=== PATIENT | male | born 1935 | race Caucasian/White ===

== ENCOUNTER 2018-07-22 08:44 | Emergency (ER) | payer MEDICARE, OTHER ==
[~2018-07-22] VITALS: Ht 177.8 cm; Wt 68.2 kg
[2018-07-22 08:47] VITALS: Ht 177.8 cm; Wt 68.2 kg
[2018-07-22] MEDS ORDERED: SOD CHLORIDE 0.9% 500 ML IV ONE (09:00)
[2018-07-22] MEDS ORDERED: SOD CHLORIDE 0.9% 2,050 ML IV ONE (09:30)
[2018-07-22] MEDS ORDERED: SIMV20TA PO (09:54)
[2018-07-22] MEDS ORDERED: OLME40TA13 PO (09:54)
[2018-07-22] MEDS ORDERED: PARO-2 PO (09:55)
[2018-07-22] MEDS ORDERED: CLOP75TA19 PO (09:55)
[2018-07-22] MEDS ORDERED: ADV25050 INHALATION (09:56)
[2018-07-22] MEDS ORDERED: DONE5TAB7 PO (09:56)
[2018-07-22] MEDS ORDERED: GUAI5SYR2 PO (09:57)
[2018-07-22] MEDS ORDERED: MULT-896 PO (09:59)
[2018-07-22] MEDS ORDERED: CEFTRIAXONE 1 GM/50 ML (PMX) 50 ML IVPB ONE (10:30)
[2018-07-22] MEDS ORDERED: QUET25TA PO ×2 (10:53→23:09)
--- NOTE | 2018-07-22 10:54 | PDOCDIS ---
Discharge Instructions CONDITION [id number] Patient Condition: [id number] Good HOME CARE INSTRUCTIONS: [id number] Diet Instructions: [id number] FOLLOW UP/APPOINTMENTS Follow-up Plan pcp 1 week OLIVIA STAFFORD MD July 22, 2018 10:54
[2018-07-22] MEDS ORDERED: AMLO5TAB4 PO ×2 (11:00→23:09)
--- NOTE | 2018-07-22 12:44 | CONS ---
DATE OF ADMISSION: 07/22/2018 DATE OF CONSULTATION: 07/22/2018 CHIEF COMPLAINT: Hallucinations. HISTORY OF PRESENT ILLNESS: An 82-year-old male with advanced Alzheimer dementia was brought in by h is daughter with complaint of visual hallucinations. Symptoms started the night prior to admission. There was no evidence of agitation. Patient denies any chest pain or shortness of breath. No cough . No abdominal pain, nausea or vomiting. No genitourinary symptoms. No fevers or chills. Initial evaluation was unremarkable. LABORATORY DATA: White blood cell count was 5.2. The serum lactate was mildly elevated to 2.1. Bas ic metabolic panel was normal. CAT scan of the brain and chest x-ray were also normal. Urinalysis i s pending. PAST MEDICAL HISTORY: 1. Hypertension. 2. Coronary artery disease. 3. Alzheimer dementia. 4. Chronic depression. 5. Chronic obstructive pulmonary disease. MEDICATIONS PRIOR TO ADMISSION: 1. Aricept. 2. Plavix. 3. Benicar. 4. Simvastatin. 5. Paxil. 6. Guaifenesin. 7. Dextromethorphan. 8. Advair. 9. Multivitamin. PHYSICAL EXAMINATION: GENERAL: Well-developed, well-nourished male who is alert but disoriented to time, place and person. VITAL SIGNS: Stable. He is afebrile. HEENT: Extraocular muscles intact. Pupils equal and reactive to light bilaterally. Sclerae are ani cteric. Oropharynx is clear and moist. NECK: Supple, no JVD, no carotid bruits. LUNGS: Clear to auscultation bilaterally. CARDIAC: Regular rate and rhythm. No murmurs, rubs or gallops. ABDOMEN: Soft, nontender, nondistended, normoactive bowel sounds. EXTREMITIES: No clubbing, cyanosis, or edema. NEUROLOGICAL: Grossly nonfocal. ASSESSMENT: 1. An 82-year-old male presenting with visual hallucinations. This is most likely progression of hi s underlying dementia. 2. Mildly elevated lactate. No source of infection. 3. Hypertension, poorly controlled. 4. Coronary artery disease, status post coronary artery bypass graft. 5. Chronic obstructive pulmonary disease, compensated. PLAN: 1. Discharge home. 2. Start Seroquel 25 mg p.o. b.i.d. 3. Add Norvasc 5 mg p.o. daily. 4. Follow up with PCP in 1 week. 5. Check urinalysis prior to discharge. 6. Plan of care was discussed with his daughter who is an [employer] at [employer]. Dictated By: OLIVIA CASIANO/KATHLEEN Conf#: [id number] DID#: [id number]
--- NOTE | 2018-07-22 13:17 | ERD ---
ER Documentation Chief Complaint Chief Complaint slurred speech, difficulty walking and weakness - LWKT 2200 last night HPI 82-year-old male brought to the emergency department by his family for evaluation of abnormal behavior. Beginning intermittently last night, patient's been delirious. He has been having auditory and visual hallucinations. He has had no focal weakness or numbness. The triage note indicates that he is having slurred speech, he is not having. He is having abnormal behavioral speech. There has been no history of headache, focal weakness or numbness. Family reports no fevers, vomiting or obvious discomfort. ROS All systems reviewed and are negative except as per history of present illness. Medications Home Meds Active Scripts Amlodipine Besylate* (Norvasc*) 5 Mg Tablet, 5 MG PO DAILY for 30 Days, TAB 1 Refill Prov:OLIVIA TORREZ MD 07/22/18 Quetiapine Fumarate* (Seroquel*) 25 Mg Tablet, 25 MG PO BID, #60 TAB Prov:OLIVIA TORREZ MD 07/22/18 Reported Medications Multivit-Min/FA/Lycopen/Lutein (Centrum Silver Men Tablet) 1 Each Tablet, 1 EACH PO DAILY, TAB 07/22/18 Guaifenesin-Dextromethorphan* (Robitussin* DM) 100MG/10MG/5ML Syrup, 5 ML PO TID, ML 07/22/18 Salmeterol Xinaf/Fluticasone* (Advair*) 250-50 Diskus Inhaler, 1 INH INHALATION BID, #1 INHALER 07/22/18 Donepezil* (Donepezil*) 5 Mg Tablet, 5 MG PO DAILY, #30 TAB 07/22/18 Clopidogrel Bisulfate* (Clopidogrel Bisulfate*) 75 Mg Tablet, 75 MG PO DAILY, #30 TAB 07/22/18 Paroxetine Hcl* (Paxil*) 20 Mg Tablet, 20 MG PO HS, TAB 07/22/18 Simvastatin* (Zocor*) 20 Mg Tablet, 20 MG PO QHS, #30 TAB 07/22/18 Olmesartan Medoxomil (Benicar) 40 Mg Tablet, 40 MG PO DAILY, #30 TAB 07/22/18 Allergies Allergies: Coded Allergies: No Known Allergy (Unverified , 07/22/18) PMhx/Soc Hx Miscellaneous Medical Probl: Yes (cabg,htn,copd,dementia) Hx Alcohol Use: No Hx Substance Use: No Hx Tobacco Use: No Smoking Status: Former smoker FmHx Supportive family at bedside Physical Exam Vitals Vital Signs Date Temp Pulse Resp B/P (MAP) Pulse Ox O2 O2 Flow FiO2 Time Delivery Rate 07/22/18 98.2 20 170/76 99 Room Air 11:30 (107) 07/22/18 98.2 61 19 196/79 95 08:47 (118) Physical Exam GENERAL: Frail, elderly male HEENT: Pupils equal, round, and reactive to light. EOMI. There is no scleral icterus. NECK: C-spine is soft and supple, there is no meningismus. There is no cervical lymphadenopathy. LUNGS: Clear to auscultation bilaterally. There are no rales, wheezes or rhonchi. HEART: Regular rate and rhythm, no murmurs, clicks, rubs or gallops. ABDOMEN: Soft, non-tender, non-distended. There are bowel sounds in all four quadrants. No rebound or guarding. EXTREMITIES: There is no peripheral cyanosis or edema. No focal swelling or erythema. NEURO: Patient is awake and has an underlying dementia providing no significant insight. His pupils are midrange, equal round and reactive, face is symmetric, tongue is midline. Motor strength is 5 out of 5 throughout all extremities. Patient has no significant insight, is intermittently agitated and according to the family appears somewhat delirious SKIN: There is no apparent rash or petechiae. HEME/LYMPHATIC: There is no evidence of excessive bruising or lymphedema. PSYCHIATRIC: The patient does not appear anxious or depressed. Result Diagram: 07/22/1890207/22/18902 Results 24 hrs Laboratory Tests Test 07/22/18 08:59 07/22/18 09:03 07/22/18 09:05 07/22/18 10:15 Bedside Glucose 170 mg/dL White Blood Count 5.2 10^3/ul Red Blood Count 5.10 10^6/ul Hemoglobin 15.0 g/dl Hematocrit 45.2 % Mean Corpuscular 88.6 fl Volume Mean Corpuscular 29.4 pg Hemoglobin Mean Corpuscular 33.2 g/dl Hemoglobin Concen t Red Cell 12.9 % Distribution Width Platelet Count 145 10^3/UL Mean Platelet 9.8 fl Volume Immature 1.000 % Granulocytes % Neutrophils % 52.9 % Lymphocytes % 34.8 % Monocytes % 7.1 % Eosinophils % 3.8 % Basophils % 0.4 % Nucleated Red 0.0 /100WBC Blood Cells % Immature 0.050 10^3/ul Granulocytes # Neutrophils # 2.8 10^3/ul Lymphocytes # 1.8 10^3/ul Monocytes # 0.4 10^3/ul Eosinophils # 0.2 10^3/ul Basophils # 0.0 10^3/ul Nucleated Red 0.0 10^3/ul Blood Cells # Prothrombin Time 12.0 Sec Prothrombin Time 0.9 Ratio INR International 0.88 Normalized Ratio Activated 33.7 Sec Partial Thrombopl ast Time Sodium Level 139 mmol/L Potassium Level 3.7 mmol/L Chloride Level 100 mmol/L Carbon Dioxide 28 mmol/L Level Anion Gap 11 Blood Urea 11 mg/dl Nitrogen Creatinine 0.96 mg/dl Est Glomerular mL/min Filtrat Rate mL/min Glucose Level 163 mg/dl Calcium Level 9.2 mg/dl Total Bilirubin 0.6 mg/dl Direct Bilirubin 0.00 mg/dl Indirect 0.6 mg/dl Bilirubin Aspartate Amino 31 IU/L Transf (AST/SGOT) Alanine 25 IU/L Aminotransferase (ALT/SGPT) Alkaline 80 IU/L Phosphatase Troponin I < 0.012 ng/ml Total Protein 7.7 g/dl Albumin 4.4 g/dl Globulin 3.30 g/dl Albumin/Globulin 1.33 Ratio POC Venous 2.1 mmol/L Lactate Urine Color COLORLESS Urine Clarity CLEAR Urine pH 6.0 Urine Specific 1.002 Brooks Urine Ketones NEGATIVE mg/dL Urine Nitrite NEGATIVE mg/dL Urine Bilirubin NEGATIVE mg/dL Urine NEGATIVE mg/dL Urobilinogen Urine Leukocyte NEGATIVE Jacob/ul Esterase Urine Microscopic 2 /HPF RBC Urine Microscopic 0 /HPF WBC Urine Hemoglobin 1+ mg/dL Urine Glucose NEGATIVE mg/dL Urine Total NEGATIVE mg/dl Protein Current Medications Medications Dose Sig/Serenity Start Time Status Last (Trade) Ordered Route PRN Stop Time Admin Dose Reason Admin Sodium 500 ml @ Q1H ONCE 07/22/18 DC Chloride 500 mls/hr IV 09:00 07/22/18 09:59 Sodium 2,050 ml @ BOLUS X1 07/22/18 DC 07/22/18 Chloride 683.333 ONCE IV 09:30 09:30 mls/hr 07/22/18 12:29 Ceftriaxone 50 ml @ ONCE ONCE 07/22/18 DC 07/22/18 Sodium 100 mls/hr IVPB 10:30 10:00 07/22/18 10:59 Procedures/MDM Patient was taken to a room, seen and evaluated. Comfort measures were initiated. Diagnostic tests were ordered and reviewed. 3 LEAD RHYTHM STRIP: Normal sinus rhythm without ectopy EK lead EKG reviewed by myself: Normal Sinus Rhythm Normal Belcher and intervals No ST elevation, depression, or T wave inversion Impression: Normal EKG RADIOLOGY: Reviewed with the radiologist CONSULTATION: I spoke with Dr. Torrez. He was notified for admission. REEVALUATION: Diagnostic tests were appreciated and discussed with the daughter who is not comfortable taking the patient home and I felt with the history of the delirium and the uncertain diagnosis, observation was appropriate MEDICAL DECISION MAKIN-year-old male presents to the emergency department with an altered mental status of uncertain etiology. While this may be related to a progression of his underlying dementia, his new delirium is still somewhat unclear as to why he is having this. His initial diagnostic test demonstrate an elevated lactate, but no evidence of significant infection. I have provided presumptive antibiotics, although he does not appear to be necessarily septic. After hydration, his lactate will be rechecked. CT scan of the brain is demonstrated no hemorrhage or significant causes of the altered mental status. Departure Diagnosis: Primary Impression: Delirium Condition: DAY Arrington July 22, 2018 13:17
[2018-07-22] MEDS ORDERED: OLANZAPINE 10 MG VIAL IM ONE (14:00)
[2018-07-22 20:31] VITALS: BP 174/78; PULSE 74; RESP 16
[2018-07-22] MEDS ORDERED: HYDR-3671 PO (23:09)
== END 2018-07-22 21:06 | disposition home or self-care (01) ==
LOC: E/R 08:44
DX: R41.0 Disorientation, unspecified (principal); I10 Essential (primary) hypertension; J44.9 Chronic obstructive pulmonary disease, unspecified; R07.9 Chest pain, unspecified; Z87.891 Personal history of nicotine dependence; Z95.1 Presence of aortocoronary bypass graft
CPT/HCPCS: 36415; 70450; 71045; 80053; 81001; 82962; 83605; 84484; 85025; 85610; 85730; 87040; 87086; 93005; 96372; 96374; 99285; J0696; J7030; J7040

== ENCOUNTER 2018-07-22 21:42 | Emergency (ER) | payer MEDICARE, OTHER ==
[~2018-07-22] VITALS: Ht 177.8 cm; Wt 68.2 kg
[~2018-07-22 21:42] MED LIST: ADV25050 INHALATION; AMLO5TAB4 PO; CLOP75TA19 PO; DONE5TAB7 PO; GUAI5SYR2 PO; MULT-896 PO; OLME40TA13 PO; PARO-2 PO; QUET25TA PO; SIMV20TA PO
[2018-07-22] MEDS ORDERED: NICARDipine HCL 30 MG CAPSULE PO ONE (22:00)
[2018-07-22] MEDS ORDERED: QUET25TA PO (23:09)
[2018-07-22] MEDS ORDERED: AMLO5TAB4 PO (23:09)
[2018-07-22] MEDS ORDERED: HYDR-3671 PO (23:09)
--- NOTE | 2018-07-22 23:15 | ERD ---
ER Documentation Chief Complaint Chief Complaint Elevated blood pressure, could not be accepted at assisted living facility HPI This is an 82-year-old gentleman with a history of Alzheimer's dementia who was recently evaluated in the emergency room, stabilized and transferred to an assisted living facility. Patient had hypertension upon checking into that facility in the 200 range. He was asymptomatic but they cannot accept the patient he was taken back directly to the emergency room. He just left the emergency room approximately 1 hour prior to my assessment. Patient himself has no complaints. He denies any chest pain or headache or shortness of breath. Family states that he is at his baseline from earlier. ROS All systems reviewed and are negative except as per history of present illness. Medications Home Meds Active Scripts Quetiapine Fumarate* (Seroquel*) 25 Mg Tablet, 25 MG PO BID for 14 Days, TAB Prov:MARGRET VAZQUEZ MD 07/22/18 Amlodipine Besylate* (Norvasc*) 5 Mg Tablet, 5 MG PO DAILY for 14 Days, TAB Prov:MARGRET VAZQUEZ MD 07/22/18 Hydralazine Hcl* (Hydralazine Hcl*) 25 Mg Tab, 25 MG PO Q8 for 14 Days, TAB Prov:MARGRET VAZQUEZ MD 07/22/18 Amlodipine Besylate* (Norvasc*) 5 Mg Tablet, 5 MG PO DAILY for 30 Days, TAB 1 Refill Prov:OLIVIA STAFFORD MD 07/22/18 Quetiapine Fumarate* (Seroquel*) 25 Mg Tablet, 25 MG PO BID, #60 TAB Prov:OLIVIA STAFFORD MD 07/22/18 Reported Medications Multivit-Min/FA/Lycopen/Lutein (Centrum Silver Men Tablet) 1 Each Tablet, 1 EACH PO DAILY, TAB 07/22/18 Guaifenesin-Dextromethorphan* (Robitussin* DM) 100MG/10MG/5ML Syrup, 5 ML PO TID, ML 07/22/18 Salmeterol Xinaf/Fluticasone* (Advair*) 250-50 Diskus Inhaler, 1 INH INHALATION BID, #1 INHALER 07/22/18 Donepezil* (Donepezil*) 5 Mg Tablet, 5 MG PO DAILY, #30 TAB 07/22/18 Clopidogrel Bisulfate* (Clopidogrel Bisulfate*) 75 Mg Tablet, 75 MG PO DAILY, #30 TAB 07/22/18 Paroxetine Hcl* (Paxil*) 20 Mg Tablet, 20 MG PO HS, TAB 07/22/18 Simvastatin* (Zocor*) 20 Mg Tablet, 20 MG PO QHS, #30 TAB 07/22/18 Olmesartan Medoxomil (Benicar) 40 Mg Tablet, 40 MG PO DAILY, #30 TAB 07/22/18 Allergies Allergies: Coded Allergies: No Known Allergy (Unverified , 07/22/18) PMhx/Soc Hx Miscellaneous Medical Probl: Yes (cabg,htn,copd,dementia) Hx Alcohol Use: No Hx Substance Use: No Hx Tobacco Use: No Smoking Status: Never smoker FmHx Family History: No diabetes Physical Exam Vitals Vital Signs Date Temp Pulse Resp B/P (MAP) Pulse Ox O2 O2 Flow FiO2 Time Delivery Rate 07/22/18 68 15 149/76 98 Room Air 23:00 (100) Physical Exam General: Well developed, well nourished, no acute distress Head: Normocephalic, atraumatic. Eyes: Pupils equally reactive, EOM intact ENT: Moist mucous membranes Neck: Supple, no lymphadenopathy Respiratory: Lungs clear bilaterally, no distress Cardiovascular: RRR, no murmurs, rubs, or gallops Abdominal: Soft, non-tender, non-distended, no peritoneal signs : Deferred MSK: No edema, no unilateral swelling, 5/5 strength Neurologic: Alert and oriented at baseline, moving all extremities, no focal deficits Skin: No rash Psych: Normal mood Results 24 hrs Current Medications Medications Dose Sig/Serenity Start Time Status Last (Trade) Ordered Route PRN Stop Time Admin Dose Reason Admin Nicardipine 30 mg ONCE ONCE 07/22/18 DC 07/22/18 HCl PO 22:00 22:12 (Cardene) 07/22/18 22:01 Procedures/MDM I reviewed the patient's most recent laboratory testing and diagnostic imaging from visit earlier today. No indication to repeat labs or imaging at this time. His blood pressure elevation was in the 200s at the facility. It is 170 systolic upon placement in the room. He is asymptomatic. IV medications are not required. Patient was given p.o. Cardene. Blood pressure improved to the 140 range. I discussed the case with Dr. Mcmahan. He recommends adding hydralazine to the regimen. The patient has prescriptions for Norvasc and Seroquel from the discharging physician, Dr. Stafford. At this point I feel the patient can be safely discharged to assisted living facility. He has appropriate scripts. I provided 14 days of hydralazine based on recommendations for Dr. Mcmahan. He can see his primary care physician on Wednesday. The patient does not have an identifiable emergent medical condition that warrants inpatient hospitalization at this time. The patient is deemed safe for discharge with outpatient follow-up. We discussed follow up with the patient's primary care doctor within 24 to 48 hours as needed. We also discussed return to the emergency room for worsening symptoms or worsening condition. Outpatient referral: PMD Discharge Medications: Patient has prescriptions for hydralazine 25 3 times daily Norvasc 5 daily Seroquel 25 twice daily Departure Diagnosis: Primary Impression: Asymptomatic hypertensive urgency Condition: Stable Patient Instructions: Hypertension, Established, Out Of Control Referrals: [facility] YOU HAVE RECEIVED A MEDICAL SCREENING EXAM AND THE RESULTS INDICATE THAT YOU DO NOT HAVE A CONDITION THAT REQUIRES URGENT TREATMENT IN THE EMERGENCY DEPARTMENT. FURTHER EVALUATION AND TREATMENT OF YOUR CONDITION CAN WAIT UNTIL YOU ARE SEEN IN YOUR DOCTORS OFFICE WITHIN THE NEXT 1-2 DAYS. IT IS YOUR RESPONSIBILITY TO MAKE AN APPOINTMENT FOR FOLOW-UP CARE. IF YOU HAVE A PRIMARY DOCTOR --you should call your primary doctor and schedule an appointment IF YOU DO NOT HAVE A PRIMARY DOCTOR YOU CAN CALL OUR PHYSICIAN REFERRAL HOTLINE AT IF YOU CAN NOT AFFORD TO SEE A PHYSICIAN YOU CAN CHOSE FROM THE FOLLOWING [facility] CLINICS [facility] [address] [facility] [address] [facility] [address] [facility] [address] [facility] [address] [facility]. [facility]. [address] [facility] YOU HAVE RECEIVED A MEDICAL SCREENING EXAM AND THE RESULTS INDICATE THAT YOU DO NOT HAVE A CONDITION THAT REQUIRES URGENT TREATMENT IN THE EMERGENCY DEPARTMENT. FURTHER EVALUATION AND TREATMENT OF YOUR CONDITION CAN WAIT UNTIL YOU ARE SEEN IN YOUR DOCTORS OFFICE WITHIN THE NEXT 1-2 DAYS. IT IS YOUR RESPONSIBILITY TO MAKE AN APPOINTMENT FOR FOLOW-UP CARE. IF YOU HAVE A PRIMARY DOCTOR --you should call your primary doctor and schedule and appointment IF YOU DO NOT HAVE A PRIMARY DOCTOR YOU CAN CALL OUR PHYSICIAN REFERRAL HOTLINE AT . IF YOU CAN NOT AFFORD TO SEE A PHYSICIAN YOU CAN CHOSE FROM THE FOLLOWING [facility] INSTITUTIONS: [facility] [address] [place] [address] [facility] [address] [place] [address] [facility] [address] [place] [address] Additional Instructions: This patient's blood pressure has improved in the emergency room. Primary care physicians recommend hydralazine 25mg 3 times daily, Norvasc 5 daily. Prescriptions provided. MARGRET VAZQUEZ MD July 22, 2018 23:15
[2018-07-22 23:17] VITALS: Ht 177.8 cm; Wt 68.2 kg
[2018-07-23] MEDS ORDERED: QUETIAPINE 25 MG TAB PO ONE (01:30)
[2018-07-23 05:18] VITALS: BP 129/61; PULSE 61; RESP 16
== END 2018-07-23 05:21 | disposition home or self-care (01) ==
LOC: E/R 21:42
DX: I16.0 Hypertensive urgency (principal); G30.9 Alzheimer's disease, unspecified; J44.9 Chronic obstructive pulmonary disease, unspecified; Z79.01 Long term (current) use of anticoagulants; Z95.1 Presence of aortocoronary bypass graft
CPT/HCPCS: 36415; 70450; 71045; 80053; 81001; 82962; 83605; 84484; 85025; 85610; 85730; 87086; 93005; 96372; 96374; 99283; J0696; J7030; J7040